=== PATIENT | male | born 1985 | race African-American/Black ===

== ENCOUNTER → 2019-09-15 | Outpatient (CLI) | payer OTHER | LOC: MHCPAIN 08:39 | DX: M47.26 Other spondylosis with radiculopathy, lumbar region (principal); G89.29 Other chronic pain | CPT/HCPCS: G0463 ==

== ENCOUNTER → 2019-09-24 | Outpatient (CLI) | payer OTHER | LOC: MHCPAIN 14:10 | DX: M54.5 Low back pain (principal) | CPT/HCPCS: J1100; Q9967 ==

== ENCOUNTER → 2019-09-30 | Outpatient (CLI) | payer OTHER | LOC: MHCPAIN 15:49 | DX: M53.3 Sacrococcygeal disorders, not elsewhere classified (principal); M47.27 Other spondylosis with radiculopathy, lumbosacral region | CPT/HCPCS: G0463 ==

== ENCOUNTER → 2019-10-01 | Outpatient (CLI) | payer OTHER | LOC: MHCPAIN 08:15 | DX: M54.5 Low back pain (principal); G89.29 Other chronic pain ==

== ENCOUNTER → 2019-12-16 | Outpatient (CLI) | payer OTHER | LOC: MHCPAIN 08:42 | DX: M54.5 Low back pain (principal); M53.3 Sacrococcygeal disorders, not elsewhere classified; M54.16 Radiculopathy, lumbar region; G89.29 Other chronic pain | CPT/HCPCS: G0463 ==

== ENCOUNTER → 2020-03-16 | Outpatient (CLI) | payer OTHER | LOC: MHCPAIN 14:46 | DX: M47.817 Spondylosis without myelopathy or radiculopathy, lumbosacral region (principal); M54.5 Low back pain; M53.3 Sacrococcygeal disorders, not elsewhere classified; G89.29 Other chronic pain; M54.16 Radiculopathy, lumbar region | CPT/HCPCS: G0463 ==